=== PATIENT | male | born 1980 | race African-American/Black ===

== ENCOUNTER 2018-10-01 14:06 | Inpatient (IN) | payer OTHER ==
[2018-10-01] MEDS: METHYLPREDNISOLONE 125 MG INJ IV (15:23)
[2018-10-01] MEDS: SOD CHLORIDE 0.9% 1,000 ML IV ×2 (15:23→18:01)
[2018-10-01] MEDS: LEVALBUTEROL (NEB) 1.25 MG/0.5 ML AMP INH ×2 (15:29→17:46)
[2018-10-01] MEDS: IPRATROPIUM (NEB) 0.5 MG/2.5 ML AMP INH ×2 (15:29→17:46)
[2018-10-01] MEDS: MAGNESIUM SULFATE 2 GM/50 ML 50 ML IVPB (19:21)
[2018-10-01] MEDS ORDERED: DOCUSATE SODIUM 100 MG CAP PO (20:30)
[2018-10-01] MEDS ORDERED: ONDANSETRON 4 MG INJ IV (20:30)
[2018-10-01] MEDS ORDERED: IPRATROPIUM (NEB) 0.5 MG/2.5 ML AMP HHN (20:30)
[2018-10-01] MEDS ORDERED: NACL 0.9% 3 ML SYG IV (20:30)
[2018-10-01] MEDS ORDERED: BISACODYL (EC) 5 MG TAB PO (20:30)
[2018-10-01 21:49] LABS: VALPROATE 34 ug/ml (50-100)
[2018-10-01] MEDS: LEVALBUTEROL (NEB) 1.25 MG/0.5 ML AMP HHN (22:12)
[2018-10-01 23:50] LABS: ADD MAN DIFF? NO
[2018-10-01 23:52] LABS: WHITE BLOOD COUNT 5.3 10^3/ul (4.8-10.8)
[2018-10-01 23:52] LABS: ABNORMAL IP MESSAGE 1; BASOPHILS % 0.2 % (0.0-2.0); HEMATOCRIT 39.6 % (42.0-52.0); HEMOGLOBIN 13.3 g/dl (14.0-18.0); LYMPHOCYTES # 0.5 10^3/ul (0.8-2.9); LYMPHOCYTES % 9.2 % (15.0-51.0); MEAN CORPUSCULAR HEMOGLOBIN 29.6 pg (29.0-33.0); MEAN CORPUSCULAR HGB CONC 33.6 g/dl (32.0-37.0); MEAN PLATELET VOLUME 10.6 fl (7.4-10.4); MONOCYTE # 0.1 10^3/ul (0.3-0.9); MONOCYTES % 1.7 % (0.0-11.0); NEUTROPHIL # 4.7 10^3/ul (1.6-7.5); NEUTROPHILS % 88.5 % (39.0-77.0); PLATELET COUNT 311 10^3/UL (140-415); POSITIVE DIFF @See below; RED CELL DISTRIBUTION WIDTH 14.2 % (11.5-14.5)
[2018-10-02 00:10] LABS: ALANINE AMINOTRANSFERASE 19 IU/L (13-69); ALBUMIN 4.2 g/dl (3.3-4.9); ALBUMIN/GLOBULIN RATIO 1.35; ALKALINE PHOSPHATASE 52 IU/L (42-121); ANION GAP 13 (5-13); ASPARTATE AMINO TRANSFERASE 29 IU/L (15-46); BILIRUBIN,INDIRECT 0.1 mg/dl (0-1.1); BILIRUBIN,TOTAL 0.1 mg/dl (0.2-1.3); BLOOD UREA NITROGEN 9 mg/dl (7-20); CALCIUM 9.2 mg/dl (8.4-10.2); CARBON DIOXIDE 26 mmol/L (21-31); CHLORIDE 104 mmol/L (97-110); CREATININE 0.74 mg/dl (0.61-1.24); Estimated GFR > 60 mL/min (>60); GLUCOSE 161 mg/dl (70-220); POTASSIUM 4.6 mmol/L (3.5-5.1); SODIUM 143 mmol/L (135-144); TOTAL PROTEIN 7.3 g/dl (6.1-8.1)
[2018-10-02] MEDS: DIVALPROEX (ER) 250 MG TAB PO ×3 (00:18→22:03)
[2018-10-02] MEDS: traZODone 100 MG TAB PO ×2 (00:18→22:03)
[2018-10-02] MEDS: LEVALBUTEROL (NEB) 1.25 MG/0.5 ML AMP HHN ×7 (01:46→19:40)
[2018-10-02] MEDS ORDERED: LEVALBUTEROL (NEB) 1.25 MG/0.5 ML AMP HHN (02:00)
[2018-10-02] MEDS: METHYLPREDNISOLONE 40 MG INJ IV ×4 (02:37→22:03)
[2018-10-02] MEDS: LORAZEPAM 4 MG/ML VIAL IV (02:39)
[2018-10-02] MEDS: IPRATROPIUM (NEB) 0.5 MG/2.5 ML AMP HHN ×6 (02:43→19:39)
[2018-10-02] MEDS: NICOTINE (14 MG/24 HR) PATCH TRANSDERM (09:23)
[2018-10-02] MEDS: ESCITALOPRAM 10 MG TAB PO (09:23)
[2018-10-02] MEDS: ACETAMINOPHEN 325 MG TAB PO (09:23)
[2018-10-02] MEDS: PANTOPRAZOLE (EC) 40 MG TAB PO (13:58)
[2018-10-02] MEDS ORDERED: LEVALBUTEROL (NEB) 0.31 MG/3 ML AMP HHN ×2 (20:00→20:30)
[2018-10-02] MEDS ORDERED: CEPASTAT LOZENGE MT (20:00)
[2018-10-02] MEDS ORDERED: GUAIFENESIN/DM 5ML CUP PO (20:00)
[2018-10-02] MEDS ORDERED: LORAZEPAM 4 MG/ML VIAL IV (20:00)
[2018-10-02] MEDS: OLANZAPINE 5 MG TAB PO (21:00)
[2018-10-02] MEDS: GUAIFENESIN/DM 5ML CUP PO (22:02)
[2018-10-02] MEDS: CEPASTAT LOZENGE MT (22:03)
[2018-10-02] MEDS: MONTELUKAST 10 MG TAB PO (22:03)
[2018-10-03] MEDS: IPRATROPIUM (NEB) 0.5 MG/2.5 ML AMP HHN ×6 (00:36→20:49)
[2018-10-03] MEDS: LEVALBUTEROL (NEB) 1.25 MG/0.5 ML AMP HHN ×6 (00:36→20:49)
[2018-10-03] MEDS: LORAZEPAM 4 MG/ML VIAL IV (01:19)
[2018-10-03] MEDS: PANTOPRAZOLE (EC) 40 MG TAB PO (05:39)
[2018-10-03] MEDS: CEPASTAT LOZENGE MT ×4 (05:39→23:31)
[2018-10-03] MEDS: GUAIFENESIN/DM 5ML CUP PO ×3 (05:39→19:43)
[2018-10-03] MEDS: METHYLPREDNISOLONE 40 MG INJ IV ×3 (05:39→21:39)
[2018-10-03] MEDS: NICOTINE (14 MG/24 HR) PATCH TRANSDERM (12:28)
[2018-10-03] MEDS: ESCITALOPRAM 10 MG TAB PO (12:28)
[2018-10-03] MEDS: DIVALPROEX (ER) 250 MG TAB PO ×2 (12:29→20:23)
[2018-10-03] MEDS: OLANZAPINE 2.5 MG TAB PO (12:29)
[2018-10-03] MEDS: ACETAMINOPHEN 325 MG TAB PO (12:29)
[2018-10-03] MEDS: MONTELUKAST 10 MG TAB PO (20:23)
[2018-10-03] MEDS: traZODone 100 MG TAB PO (20:23)
[2018-10-03] MEDS: LORAZEPAM 2 MG INJ IV (21:13)
[2018-10-04] MEDS: IPRATROPIUM (NEB) 0.5 MG/2.5 ML AMP HHN ×4 (01:21→12:38)
[2018-10-04] MEDS: LEVALBUTEROL (NEB) 1.25 MG/0.5 ML AMP HHN ×4 (01:22→12:38)
[2018-10-04] MEDS: GUAIFENESIN/DM 5ML CUP PO ×2 (01:43→10:00)
[2018-10-04] MEDS: CEPASTAT LOZENGE MT ×3 (01:43→10:00)
[2018-10-04] MEDS: PANTOPRAZOLE (EC) 40 MG TAB PO (05:58)
[2018-10-04] MEDS: METHYLPREDNISOLONE 40 MG INJ IV ×2 (05:58→13:59)
[2018-10-04] MEDS: DIVALPROEX (ER) 250 MG TAB PO (08:42)
[2018-10-04] MEDS: ESCITALOPRAM 10 MG TAB PO (08:42)
[2018-10-04] MEDS: OLANZAPINE 2.5 MG TAB PO (08:42)
[2018-10-04] MEDS: NICOTINE (14 MG/24 HR) PATCH TRANSDERM (08:43)
== END 2018-10-04 16:20 | disposition home or self-care (01) | DRG 202 ==
LOC: PP2 10-03 14:55 → E/R 14:06 → 6WM 19:15
PROVIDERS: Family Medicine
DX: J45.901 Unspecified asthma with (acute) exacerbation (principal); F20.0 Paranoid schizophrenia; F17.210 Nicotine dependence, cigarettes, uncomplicated; F31.9 Bipolar disorder, unspecified
CPT/HCPCS: 71045; 80053; 80164; 85025; 94640; 94644; 96374; 99291-25; G0378